=== PATIENT | male | born 2000 | race Caucasian/White ===

== ENCOUNTER 2021-10-18 12:26 | Emergency (ER) | payer BC, SELFPAY ==
[~2021-10-18 12:26] MED LIST: ISOVUE-370 76%-LOCM 1 ML ONE
[2021-10-18] MEDS ORDERED: Ondansetron PF 4 MG/2 ML Vial ONE ×2 (12:56→14:27)
[2021-10-18 13:16] LABS: #Basophils 0.1 thou/uL (0.0-0.2); #Eosinphils 0.2 thou/uL (0.0-0.7); #Lymphocytes 1.9 thou/uL (1.20-3.40); #Monocytes 0.5 thou/uL (0.11-0.59); #Neutrophils 4.5 thou/uL (1.40-6.50); %Basophils 0.9 % (0.0-1.0); %Eosinophils 2.9 % (0.0-10.0); %Lymphocytes 26.2 % (21.0-51.0); %Monocytes 7.3 % (0.0-10.0); %Neutrophils 62.6 % (42.0-75.0); Hemoglobin 16.5 g/dL (14.0-18.0); Mean Corpuscular HGB CONC 34.9 g/dL (32.0-36.0); Mean Corpuscular Hemoglobin 31.7 pg (27.0-31.0); Mean Platelet Volume 7.1 fL (7.4-10.4); Platelet Count 231 thou/uL (130-400); RBC Distribution Width 12.7 % (11.5-14.5); Red Blood Cell (RBC) Count 5.19 mill/uL (4.70-6.10); White Blood Cell (WBC) Count 7.2 thou/uL (4.8-10.8)
[2021-10-18] MEDS ORDERED: Dicyclomine 20 MG TAB ONE (13:17)
[2021-10-18 13:37] LABS: ALT (SGPT) 19 U/L (8-55); AST (SGOT) 16 U/L (5-34); Albumin 4.5 g/dL (3.5-5.0); Alkaline Phosphatase 77 U/L (40-110); Anion Gap 16 mmol/L (10-20); BUN (Urea Nitrogen) 6 mg/dL (8.9-20.6); Bilirubin, Total 0.8 mg/dL (0.2-1.2); Calc. Creatinine Clearance 0 mL/min (70-130); Calcium 9.7 mg/dL (7.8-10.44); Carbon Dioxide 20 mmol/L (22-29); Chloride 106 mmol/L (98-107); Globulin 3.2 g/dL (2.4-3.5); Glucose 116 mg/dL (70-105); Lipase 11 U/L (8-78); Potassium 3.4 mmol/L (3.5-5.1); Protein, Total 7.7 g/dL (6.0-8.3); Sodium 139 mmol/L (136-145)
== END 2021-10-18 14:32 | disposition home or self-care (01) ==
LOC: ERS 12:26
DX: R10.33 Periumbilical pain (principal); F17.290 Nicotine dependence, other tobacco product, uncomplicated
CPT/HCPCS: 36415; 74177; 80053; 83690; 85025; 94760; 96374; 96376; J0500; J2405; Q9966

== ENCOUNTER 2022-07-30 10:35 | Emergency (ER) | payer SELFPAY | END 2022-07-30 10:50 | disposition left against medical advice (07) | LOC: ERS 10:35 | DX: Z53.21 Procedure and treatment not carried out due to patient leaving prior to being seen by health care provider (principal) ==

== ENCOUNTER 2022-07-30 23:41 | Observation (INO) | payer BC, SELFPAY ==
[2022-07-31 00:39] LABS: #Basophils 0.1 thou/uL (0.0-0.2); #Eosinphils 0.1 thou/uL (0.0-0.7); #Lymphocytes 3.8 thou/uL (1.20-3.40); #Monocytes 1.3 thou/uL (0.11-0.59); #Neutrophils 6.5 thou/uL (1.40-6.50); %Basophils 0.7 % (0.0-1.0); %Eosinophils 0.8 % (0.0-10.0); %Lymphocytes 31.9 % (21.0-51.0); %Monocytes 11.4 % (0.0-10.0); %Neutrophils 55.2 % (42.0-75.0); Hemoglobin 14.8 g/dL (14.0-18.0); Mean Corpuscular HGB CONC 32.9 g/dL (32.0-36.0); Mean Corpuscular Volume 94.3 fL (78.0-98.0); Mean Platelet Volume 7.3 fL (7.4-10.4); Platelet Count 217 thou/uL (130-400); RBC Distribution Width 12.2 % (11.5-14.5); Red Blood Cell (RBC) Count 4.78 mill/uL (4.70-6.10); White Blood Cell (WBC) Count 11.8 thou/uL (4.8-10.8)
[2022-07-31 00:59] LABS: ALT (SGPT) 10 U/L (8-55); AST (SGOT) 13 U/L (5-34); Albumin 4.2 g/dL (3.5-5.0); Alkaline Phosphatase 60 U/L (40-110); Anion Gap 14 mmol/L (10-20); BUN (Urea Nitrogen) 11 mg/dL (8.9-20.6); Bilirubin, Total 0.5 mg/dL (0.2-1.2); Calc. Creatinine Clearance 0 mL/min (70-130); Carbon Dioxide 22 mmol/L (22-29); Chloride 107 mmol/L (98-107); Estimated GFR 127; Globulin 2.8 g/dL (2.4-3.5); Glucose 93 mg/dL (70-105); Lipase 10 U/L (8-78); Potassium 3.7 mmol/L (3.5-5.1); Sodium 139 mmol/L (136-145)
[2022-07-31] MEDS ORDERED: Piperacillin/Tazobactam 4.5 GM VIAL ONE (04:35)
[2022-07-31 05:11] LABS: SARS-CoV-2 NAA Rapid Test Not Detected (NotDetected)
[2022-07-31 05:21] VITALS: BMI 25.4
[2022-07-31] MEDS ORDERED: Morphine 2 MG/ML VIAL SLOW IVP PRN ×2 (07:00→12:12)
[2022-07-31] MEDS ORDERED: hydrOXYzine 25 MG TAB PO PRN (07:23)
[2022-07-31] MEDS ORDERED: Bupivacaine/Epinephrine 0.25% 30 ML VIAL ONE (09:38)
[2022-07-31] MEDS ORDERED: Sodium Chloride 0.9% 100 ML ONE (09:40)
[2022-07-31] MEDS ORDERED: Piperacillin/Tazobactam 3.375 GM VIAL ONE (09:40)
[2022-07-31] MEDS ORDERED: Midazolam HCl 2 mg/2 ml Vial ONE ×2 (09:40→09:47)
[2022-07-31] MEDS: Sodium Chloride 0.9% 1,000 ML IV SCH ×2 (09:43→14:34)
[2022-07-31] MEDS ORDERED: fentaNYL Citrate/PF 100 MCG/2 ML SYRINGE ONE (09:48)
[2022-07-31] MEDS ORDERED: Rocuronium Bromide 10 MG/ML (10ML VIAL) ONE (10:07)
[2022-07-31] MEDS ORDERED: PROPOFOL 200 MG/20 ML VIAL ONE (10:07)
[2022-07-31] MEDS ORDERED: Succinylcholine 200 MG/10 ml SYRINGE FS ONE (10:07)
[2022-07-31] MEDS ORDERED: Ondansetron PF 4 MG/2 ML Vial ONE (10:07)
[2022-07-31] MEDS ORDERED: Dexamethasone 20 MG/5 ML VIAL ONE (10:07)
[2022-07-31] MEDS ORDERED: Ketorolac Tromethamine 30 MG/ML VIAL ONE (10:07)
[2022-07-31] MEDS ORDERED: Lidocaine 1% MPF 2 ML VIAL ONE (10:07)
[2022-07-31] MEDS ORDERED: Meperidine HCl/PF 25 MG/ML VIAL ONE (10:58)
[2022-07-31] MEDS ORDERED: Fentanyl 100 MCG/2 ML VIAL ONE (11:16)
[2022-07-31] MEDS ORDERED: Acetaminophen 325 MG TAB PO PRN ×2 (12:12→12:13)
[2022-07-31] MEDS ORDERED: Morphine 4 MG/ML VIAL SLOW IVP PRN (12:12)
[2022-07-31] MEDS ORDERED: HYDROcodone/Acetaminophen 5/325 mg Tablet PO PRN ×2 (12:13)
[2022-07-31] MEDS ORDERED: Iopamidol-370 76% 500 ML 1 ML ONE (14:46)
[2022-07-31] MEDS ORDERED: GASTROGRAFIN 30 ML BOT ONE (14:46)
[2022-07-31 17:05] VITALS: BP 101/63; TEMP 98.3
[2022-07-31] MEDS ORDERED: Piperacillin/Tazobactam 3.375 GM in Sodium Chloride 0.9% 100 ML IVPB SCH (18:00)
== END 2022-07-31 18:00 | disposition home or self-care (01) ==
LOC: ERS 23:41 → SJJU 07-31 03:50
PROVIDERS: ADMIT Surgery; ATTEND Surgery
PROC: 0DTJ4ZZ Resection of Appendix, Percutaneous Endoscopic Approach (ICD-10-PCS; principal; 2022-07-31)
DX: K35.80 Unspecified acute appendicitis (principal); F12.10 Cannabis abuse, uncomplicated; Z79.899 Other long term (current) drug therapy; Z20.822 Contact with and (suspected) exposure to COVID-19
CPT/HCPCS: 36415; 74177; 80053; 83690; 85025; 88304; 96374; G0378; J1100; J1885; J2175; J2250; J2405; J2543; J2704; J3010; J3490; Q9963; Q9967; U0002